=== PATIENT | female | born 1935 | race Hispanic/Latino ===

== ENCOUNTER 2016-10-20 20:31 | Emergency (ER) | payer MEDICARE, OTHER ==
[2016-10-20 20:31] VITALS: BMI 31.3
[2016-10-20 20:40] VITALS: BP 162/78; PULSE 71; RESP 18; TEMP 97.3; O2SAT 98
--- NOTE | 2016-10-20 21:53 | ED PDOC ---
HPI: Trauma/Fall - HPI Time Seen by Provider: 10/20/16 20:55 Chief Complaint (Nursing): Trauma Chief Complaint (Provider): Right Sided Rib Pain History Per: Patient History/Exam Limitations: no limitations Injury Occurred (Timing): Just Before Arrival Additional Complaint(s): Terra Albert, an 81 year old female, presents to the ED post fall complaining of right sided rib pain. The patient states that she was walking down the stairs when she missed a step. She states that she on the right side of her rib cage and hit the stairs. Patient also notes some pain with deep inspiration. She says she has not taken anything for pain. Denies any other medical complaint. - Fall Fall:Prior To Injury: Tripped Past Medical History Reviewed: Historical Data, Nursing Documentation, Vital Signs Vital Signs: Last Vital Signs Temp 97.3 F L 10/20/16 20:38 Pulse 71 10/20/16 20:38 Resp 18 10/20/16 20:38 BP 162/78 H 10/20/16 20:38 Pulse Ox 98 10/20/16 20:38 - Medical History PMH: HTN Denies: Chronic Kidney Disease - Surgical History Surgical History: Appendectomy, Cholecystectomy Other surgeries: Hysterectomy - Family History Family History: States: No Known Family Hx - Home Medications Home Medications: Ambulatory Orders Medication Instructions Recorded Aspirin [Lo-Dose Aspirin EC] 81 mg PO DAILY 10/20/16 Nitrofurantoin Macrocrystals 100 mg PO BID #14 cap 10/20/16 [Macrobid] Telmisartan [Micardis] 40 mg PO DAILY 10/20/16 - Allergies Allergies/Adverse Reactions: Allergies Allergy/AdvReac Type Severity Reaction Status Date / Time No Known Allergies Allergy Verified 04/17/14 09:50 Review of Systems ROS Statement: Except As Marked, All Systems Reviewed And Found Negative Musculoskeletal: Positive for: Other (Right sided rib pain) Physical Exam - Reviewed Nursing Documentation Reviewed: Yes Vital Signs Reviewed: Yes - Physical Exam Appears: Positive for: Non-toxic, No Acute Distress Head Exam: Positive for: ATRAUMATIC, NORMAL INSPECTION, NORMOCEPHALIC Skin: Positive for: Normal Color, Warm, Dry Eye Exam: Positive for: Normal appearance, EOMI, PERRL ENT: Positive for: Normal ENT Inspection Neck: Positive for: Normal, Painless ROM, Supple Cardiovascular/Chest: Positive for: Regular Rate, Rhythm, Chest Non Tender, Other (Right rib in back of chest there is redness and tenderness; no swelling; no deformity no crepitus; no ecchymosis.). Negative for: Tachycardia Respiratory: Positive for: Normal Breath Sounds, Other. Negative for: Wheezing , Respiratory Distress Gastrointestinal/Abdominal: Positive for: Normal Exam, Bowel Sounds, Soft. Negative for: Tenderness, Guarding, Rebound Neurologic/Psych: Positive for: Alert, Oriented, Gait - ECG O2 Sat by Pulse Oximetry: 98 (RA) Pulse Ox Interpretation: Normal Medical Decision Making Medical Decision Makin Initial Impression: 81 year old female presenting with rib/chest injury Differential: Rib Fracture, Contusion Initial Impression: * Udip * RAD Ribs and Chest Right * Toradol 30mg PO * Reevaluation * * CXR rib xray no acute findings * * Scribe Attestation Documented by Kym Joe acting as a scribe for Rowan Sharma MD. Provider Attestation: All medical record entries made by the Scribe were at my direction and personally dictated by me. I have reviewed the chart and agree that the record accurately reflects my personal performance of the history, physical exam, medical decision making, and the department course for this patient. I have also personally directed, reviewed, and agree with the discharge instructions and disposition. Disposition - Clinical Impression Clinical Impression: Trauma of chest, Rib contusion, UTI (urinary tract infection) - Patient ED Disposition Is Patient to be Admitted: No Doctor Will See Patient In The: Office Counseled Patient/Family Regarding: Studies Performed, Diagnosis, Need For Followup - Disposition Referrals: Jose Haji MD [Family Provider] - Disposition: Routine/Home Disposition Time: 22:53 Condition: GOOD Additional Instructions: Take advil for pain as needed. Apply ice for next 24 hours. Apply heat for pain after that. Follow up with your PCP in 2-3 days. Prescriptions: Nitrofurantoin Macrocrystals [Macrobid] 100 mg PO BID #14 cap Instructions: Urinary Tract Infection in Women (ED), Rib Contusion (ED)
--- NOTE | 2016-10-21 13:35 | RAD ---
PROCEDURE: Radiographs of the Chest and Right Ribs. HISTORY: rib injury right COMPARISON: None available. TECHNIQUE: Frontal radiograph of the chest and multiple oblique radiographs of the right ribs were obtained. FINDINGS: RIGHT RIBS: No fracture or focal lesion visualized. No suspicious lytic or blastic change. LUNGS: Clear. PLEURA: Trace fibrosis or pleural effusion blunts the lateral left costophrenic sulcus with the medial costophrenic sulcus appearing sharp nevertheless. Borderline left hemidiaphragm elevation is noted. No pneumothorax bilaterally. CARDIOVASCULAR: Normal sized heart. No pulmonary vascular congestion. OTHER FINDINGS: None. IMPRESSION: No definite acute right rib fracture identified at this time. Trace left pleural effusion or fibrosis at the left costophrenic sulcus. Limited elevation left hemidiaphragm of uncertain etiology.
== END 2016-10-20 23:03 | disposition home or self-care (01) ==
LOC: H.ER 20:31
DX: S20.219A Contusion of unspecified front wall of thorax, initial encounter (principal); W01.0XXA Fall on same level from slipping, tripping and stumbling without subsequent striking against object, initial encounter; Y92.89 Other specified places as the place of occurrence of the external cause; N39.0 Urinary tract infection, site not specified; I10 Essential (primary) hypertension; Z79.82 Long term (current) use of aspirin
CPT/HCPCS: 71101; 96372; 99284; J1885

== ENCOUNTER 2016-11-04 12:34 | Inpatient (IN) | payer MEDICARE, OTHER ==
[2016-11-04 12:35] VITALS: BMI 31.3
--- NOTE | 2016-11-04 13:46 | ED PDOC ---
Lower Extremity Pain/Injury Time Seen by Provider: 11/04/16 13:12 Chief Complaint (Nursing): Lower Extremity Problem/Injury Chief Complaint (Provider): Lower extremity problem History Per: Patient History/Exam Limitations: no limitations Onset/Duration Of Symptoms: Days (x2 weeks) Current Symptoms Are (Timing): Still Present Additional Complaint(s): Terra Albert is a 81 year old female, with a past medical history of hypertension and left side poor vascular return, who presents to the emergency department complaining of bilateral lower leg pain onset for 2 weeks. Patient reports bilateral leg swelling secondary to tingling, stiffness, warmth and redness on lower extremities. She denies any chest pain, shortness of breath, back pain, dysuria, hematuria, dizziness, cough, headache, recent travels or prolonged car rides. No recent surgeries and bleeding disorders, patient denies any history of DVT or PE. Patient reports she was sent today to the ER by her primary physician Dr. Haji. She reports she fell 2 weeks ago, she was seen in the ER due to low back pain where she received an X-ray of her ribs and chest , which came back normal. She was discharged with Macrobid for UTI. Patient notes 2 day after discharge she develops swelling on bilateral legs. She was seen at primary office this week for gout and was given Uloric. She notes 2 days after the swelling worsens and is associated with pain. PMD: Jose Haji - Risk Factors DVT Risk Factors: Neg: History Of DVT, History Of PE Past Medical History Reviewed: Historical Data, Nursing Documentation, Vital Signs Vital Signs: Last Vital Signs Temp 98 F 11/04/16 12:38 Pulse 64 11/04/16 12:38 Resp 16 11/04/16 12:38 BP 127/58 L 11/04/16 12:38 Pulse Ox 93 L 11/04/16 12:38 - Medical History PMH: HTN Denies: Chronic Kidney Disease - Surgical History Surgical History: Appendectomy, Cholecystectomy - Family History Family History: States: Unknown Family Hx - Social History Current smoker - smoking cessation education provided: No Alcohol: None Drugs: Denies - Home Medications Home Medications: Ambulatory Orders Medication Instructions Recorded Aspirin [Lo-Dose Aspirin EC] 81 mg PO DAILY 10/20/16 Ciprofloxacin [Cipro] 250 mg PO BID 11/04/16 Febuxostat [Uloric] 40 mg PO DAILY 11/04/16 Furosemide [Lasix] 20 mg PO DAILY 11/04/16 Telmisartan/Hydrochlorothiazid 1 tab PO DAILY 11/04/16 [Micardis Hct 40-12.5 mg Tablet] - Allergies Allergies/Adverse Reactions: Allergies Allergy/AdvReac Type Severity Reaction Status Date / Time No Known Allergies Allergy Verified 11/04/16 12:36 Review of Systems ROS Statement: Except As Marked, All Systems Reviewed And Found Negative Constitutional: Negative for: Fever Cardiovascular: Negative for: Chest Pain Respiratory: Negative for: Cough, Shortness of Breath Genitourinary Female: Negative for: Dysuria, Hematuria Musculoskeletal: Positive for: Leg Pain (b/l swelling associated with tingling, warm, red coloration, and stiffness). Negative for: Back Pain Neurological: Negative for: Headache, Dizziness Physical Exam - Reviewed Nursing Documentation Reviewed: Yes Vital Signs Reviewed: Yes - Physical Exam Appears: Positive for: Well, Non-toxic, No Acute Distress Head Exam: Positive for: ATRAUMATIC, NORMAL INSPECTION, NORMOCEPHALIC Skin: Positive for: Normal Color, Warm, DRY Eye Exam: Positive for: Normal appearance Cardiovascular/Chest: Positive for: Regular Rate, Rhythm Respiratory: Positive for: Normal Breath Sounds. Negative for: Respiratory Distress Pulses-Dorsalis Pedis (L): 2+ Pulses-Dorsalis Pedis (R): 2+ Pulses-Femoral (L): 2+ Pulses-Femoral (R): 2+ Gastrointestinal/Abdominal: Positive for: Normal Exam. Negative for: Tenderness (No suprapubic pain) Back: Positive for: Normal Inspection. Negative for: L CVA Tenderness, R CVA Tenderness Extremity: Positive for: Pedal Edema (Significant edema b/l with skin changes), Calf Tenderness (bilateral), Swelling Neurologic/Psych: Positive for: Alert, Oriented - Laboratory Results Result Diagrams: 11/04/16 13:44 11/04/16 13:44 - ECG O2 Sat by Pulse Oximetry: 93 (RA) Medical Decision Making Medical Decision Making: Initial Impression: DVT Initial Plan: --Comp Metabolic Panel --CBC w/ differential --PTT --PT --Hip min 3V w/ Pelvis Juan R [RAD] --Urinalysis --Duplex lower extrm vein bilat [US] Note: Dr. Haji Phone #: [phone] 16:[address] Findings: Visualized portions of the inferior thyroid gland demonstrates 2.4 cm right lower pole nodule with evidence of associated calcifications. The mediastinal and hilar vascular structures appear within normal limits. The heart appears within normal limits of size. Atherosclerotic calcifications of a tortuous aorta. Coronary artery calcifications. Pulmonary emboli noted within right lower lobe and left upper lobe pulmonary artery branches. No central pulmonary embolus identified. Centrilobular emphysema. Bibasilar atelectasis. No pleural effusion. No pneumothorax. No suspicious pulmonary nodules measuring greater than 5 mm. Small hiatal hernia/distal esophageal wall thickening. Limited visualized portions of the upper abdomen demonstrates 14 mm probable splenule. Kyphosis. Degenerative changes. Impression: Pulmonary emboli noted within right lower lobe and left upper lobe pulmonary artery branches. No central pulmonary embolus identified. 2.4 cm right lower pole thyroid nodule with evidence of associated calcifications. Centrilobular emphysema. Bibasilar atelectasis. 16:41 Extremity US FINDINGS: COMMON FEMORAL VEIN: Right CFV: Unremarkable. Left CFV: Unremarkable. SUPERFICIAL FEMORAL VEIN: Right SFV: Unremarkable. Left SFV: Unremarkable. POPLITEAL VEIN: Right Popliteal: Unremarkable. Left Popliteal: Unremarkable. POSTERIOR TIBIAL VEIN: Right PTV: Unremarkable. Left PTV: Unremarkable. OTHER FINDINGS: None. IMPRESSION: No evidence of deep venous thrombosis. 16:50 Note: No white blood cell elevation. Patient with evidence of UTI. ABG Shock panel, EKG, Troponin I, Echo comp w/ M mode/c flow/dop, K-Dur 20 mEq ER tab, Cipro 400mg IVPB ordered. Dr. Rico made aware hospitalist of case and has agreed for consult. 17:00 Patient was spoken to and made aware that she has bilateral embolism to lungs. Patient denies any bleeding and head injury. She has agreed to Lovenox, 90 units SC, and she will be admitted to hospitalist. 17:10 Discussed patient with hospitalist. Patient medication changed from Lovenox to Eliquis. Patient was informed in the change of medication and has agreed. Scribe Attestation: Documented by Claus Franco, acting as a scribe for Sabrina BOGGS. Provider Scribe Attestation: All medical record entries made by the Scribe were at my direction and personally dictated by me. I have reviewed the chart and agree that the record accurately reflects my personal performance of the history, physical exam, medical decision making, and the department course for this patient. I have also personally directed, reviewed, and agree with the discharge instructions and disposition. Disposition - Clinical Impression Clinical Impression: UTI (urinary tract infection), Pulmonary embolism - Patient ED Disposition Is Patient to be Admitted: Yes - Disposition Disposition Time: 17:35 Condition: STABLE Forms: [employer] (Namibian) - Pt Status Changed To: Hospital Disposition Of: Inpatient - Admit Certification Admit to Inpatient:: After my assessment, the patient will require hospitalization for at least two midnights. This is because of the severity of symptoms shown, intensity of services needed, and/or the medical risk in this patient being treated as an outpatient. - POA Present On Arrival: Deep Vein Thrombosis / PE
[2016-11-04 13:58] LABS: BASO # 0.1 K/uL (0.0-0.2); BASO % 0.9 % (0.0-2.0); EOS # 0.3 K/uL (0.0-0.7); EOS % 3.3 % (0.0-4.0); HEMOGLOBIN 13.2 g/dL (12.0-16.0); LYMPH # 1.2 K/uL (1.0-4.3); LYMPH % 15.4 % (20.0-40.0); MEAN CELL VOLUME 87.7 fl (81.0-99.0); MEAN CORPUSCULAR HEMOGLOBIN 29.2 pg (27.0-31.0); MEAN CORPUSCULAR HGB CONC 33.3 g/dL (33.0-37.0); MONO # 0.7 K/uL (0.0-0.8); MONO % 8.6 % (0.0-10.0); NEUT # 5.4 K/uL (1.8-7.0); NEUT % 71.8 % (50.0-75.0); RBC 4.51 Mil/uL (3.80-5.20); RED CELL DISTRIBUTION WIDTH 14.7 % (11.5-14.5); WHITE BLOOD COUNT 7.6 K/uL (4.8-10.8)
[2016-11-04 14:15] LABS: ALB/GLOB RATIO 1.2 (1.0-2.1); ALBUMIN 4.2 g/dL (3.5-5.0); ALT/SGPT 29 U/L (9-52); AST/SGOT 23 U/L (14-36); BLOOD UREA NITROGEN 16 mg/dl (7-17); CALCIUM 9.9 mg/dL (8.4-10.2); GFR AFRICAN-AMERICAN > 60; GFR NON-AFRICAN AMERICAN > 60
[2016-11-04 14:24] LABS: URIC ACID 6.7 mg/Dl (2.2-7.5)
[2016-11-04] MEDS ORDERED: Potassium Chloride 10 mEq ER Tab PO ONE ×2 (14:31→17:13)
[2016-11-04 14:47] LABS: INR 1.1 (0.9-1.2); PARTIAL THROMBOPLASTIN TIME 29.6 Seconds (25.6-37.1); PROTHROMBIN TIME 11.6 Seconds (9.8-13.1)
[2016-11-04] MEDS ORDERED: Iodixanol 320 MG/ML 100 ML BOTTLE IV ONE (15:32)
[2016-11-04] MEDS ORDERED: Sodium Chloride 0.9% 50 ML IV ONE (15:32)
[2016-11-04 15:48] LABS: URINE BILIRUBIN NEGATIVE (NEGATIVE); URINE BLOOD NEGATIVE (NEGATIVE); URINE CLARITY SLIGHTY-CLOUDY (Clear); URINE COLOR YELLOW (YELLOW); URINE GLUCOSE (UA) NEG (Normal); URINE LEUKOCYTE ESTERASE LARGE Leu/uL (Negative); URINE NITRATE POSITIVE (NEGATIVE); URINE PROTEIN NEGATIVE (NEGATIVE); URINE UROBILINOGEN 0.2-1.0 mg/dL (0.2-1.0)
[2016-11-04 16:26] LABS: SQUAMOUS EPITHIAL 3 /hpf (0-5); URINE BACTERIA MANY (<OCC)
[2016-11-04 16:27] LABS: URINE AMORPHOUS SEDIMENT FEW /ul (<OCC)
--- NOTE | 2016-11-04 16:42 | CT ---
CTA chest PE protocol Indication: elevated Ddimer, low O2%, hip injury 2wk ago Technique: Contiguous axial images were obtained through the chest with intravenous contrast enhancement. Sagittal and coronal reconstructions were generated and reviewed. This CT exam was performed using 1 or more of the falling dose reduction techniques: Automated exposure control, adjustment of the MAA and/or kV according to patient size, and/or use of iterative reconstruction technique. IV Contrast: 90 mL Visipaque 320 Radiation dose (DLP): 386.83 MGy-cm. Comparison: Chest x-ray performed 10/20/16 Findings: Visualized portions of the inferior thyroid gland demonstrates 2.4 cm right lower pole nodule with evidence of associated calcifications. The mediastinal and hilar vascular structures appear within normal limits. The heart appears within normal limits of size. Atherosclerotic calcifications of a tortuous aorta. Coronary artery calcifications. Pulmonary emboli noted within right lower lobe and left upper lobe pulmonary artery branches. No central pulmonary embolus identified. Centrilobular emphysema. Bibasilar atelectasis. No pleural effusion. No pneumothorax. No suspicious pulmonary nodules measuring greater than 5 mm. Small hiatal hernia/distal esophageal wall thickening. Limited visualized portions of the upper abdomen demonstrates 14 mm probable splenule. Kyphosis. Degenerative changes. Impression: Pulmonary emboli noted within right lower lobe and left upper lobe pulmonary artery branches. No central pulmonary embolus identified. 2.4 cm right lower pole thyroid nodule with evidence of associated calcifications. Centrilobular emphysema. Bibasilar atelectasis. Discussed With Sabrina Gutierrez on 11/04/16 at 4:34 p.m.
--- NOTE | 2016-11-04 16:43 | US ---
PROCEDURE: Bilateral lower extremity venous duplex Doppler. HISTORY: b/l swelling COMPARISON: None available. TECHNIQUE: Bilateral common femoral, superficial femoral, popliteal and posterior tibial veins were evaluated. Flow was assessed with color Doppler, compressibility, assessment of phasic flow and augmentation response. FINDINGS: COMMON FEMORAL VEIN: Right CFV: Unremarkable. Left CFV: Unremarkable. SUPERFICIAL FEMORAL VEIN: Right SFV: Unremarkable. Left SFV: Unremarkable. POPLITEAL VEIN: Right Popliteal: Unremarkable. Left Popliteal: Unremarkable. POSTERIOR TIBIAL VEIN: Right PTV: Unremarkable. Left PTV: Unremarkable. OTHER FINDINGS: None. IMPRESSION: No evidence of deep venous thrombosis.
[2016-11-04] MEDS ORDERED: Ciprofloxacin 400mg/200ml D5W 400 MG/200 ML BAG IV STA (16:45)
[2016-11-04] MEDS ORDERED: Enoxaparin 80 mg Syringe SC STA (16:55)
--- NOTE | 2016-11-04 17:12 | RAD ---
PROCEDURE: Pelvis bilateral hips HISTORY: fall injury x 2 weeks. COMPARISON: None TECHNIQUE: Standard protocol for this study/examination. FINDINGS: There are no osseous abnormalities to suggest fracture. The pelvic ring is intact. Preserved femoral-acetabular relationship. Negative study for protrusio, subluxation or dislocation. Degenerative changes: Mild and symmetrical. IMPRESSION: No acute findings related to/accounting for the clinical presentation. No preliminary report provided by emergency department personnel.
[2016-11-04] MEDS ORDERED: Ciprofloxacin 400mg/200ml D5W 400 MG/200 ML BAG IVPB ONE (17:13)
[2016-11-04 17:17] LABS: ABG ALLEN TEST YES; ARTERIAL BLOOD GAS HCO3 28.7 mmol/L (21-28); ARTERIAL BLOOD GAS O2 SAT 99.1 % (95-98); ARTERIAL BLOOD GAS PCO2 41 mm/Hg (35-45); ARTERIAL BLOOD GAS PH 7.46 (7.35-7.45); ARTERIAL BLOOD GAS PO2 75 mm/Hg (80-100); ARTERIAL BLOOD GAS TCO2 30.5 mmol/L (22-28)
--- NOTE | 2016-11-04 17:30 | CP.CCUPN ---
CCU Subjective - Physician Review Subjective (Free Text): PHYSICIAN CRITICAL CARE NOTE BUSINESS DEVELOPMENT ASSISTANT ICU ADMISSION NOTE Events reviewed, patient examined, discussed with ER MD: 81 F with PMH HTN and LOW back pain after falling at home 2 weeks ago, cleared for discharge to home after eval in ER, and laced on MacroBID for UTI as well at that time. Today, returned to ER with c/o bilateral leg pain, redness and swelling. Denies any CP or SOB, no cough, fevers, chills, N/V, palpitations, dizziness, diaphoresis. No recurrent falls, nor any focal weakness. Initial eval notable for bilateral RLL and GABRIEL PTE as seen on CTA Chest. SPO2 93% on RA , and placed on supplemental nasal cannula oxygen with SPO2 99%. Initial VS= T = 98F, BP 127/58, HR 64, RR 16. Awaiting on further labs in ER including ABG, Trops, Lactate, EKG and portable CXR. Allergies: NKDA ROS: as above, no further pertinent negs or positives on 10+ system review. Other PMSFH: thyroid goiter, non-smoker, no early family deaths from heart disease or CA. HEENT: no icterus, pupils equal / reactive, no gaze deviation, no nystagmus. NECK: no visible JVD CHEST: decreased BS bases, no wheezes, few bibasilar crackles. HEART: regular S1S2, no rubs heard. ABD: soft, and nontender, no distention, BS audible. EXT: +2 edema with min erythema and calf tenderness. No peripheral cyanosis. Distal pulses intact. NEURO: no focal weakness or focal motor deficits. AVAILABLE LABS: Lactate = peding ABG= pending WBC= 7.6 HGB= 13.2 PLTs= 204K Ddimer= 662 NA= 137 K= 3.2 HCO3= 26 BUN/Cr= 16/0.8 CXR pending. CTA Chest: results reviewed, bibasilar atelectasis, no gross consolidation. EKG: pending IMPRESSIONS: 1. Acuet / SubAcute PTE 2. Bilateral Lower Extremity Cellulitis, r/o Lower Extremity DVT 3. Hypokalemia 4. Bactiuria / UTI 5. HTN by history PLAN: 1. Awaiting on Trops and ECHO findings for further patient disposition and monitoring. 2. Supplemental O2. 3. Prelim report of venous Doppler US legs are negative for DVT. 4. Start AC. Non-massive / sub-massive PTE: no indication now for any thrombolytic therapy. 5. Check TFTs. Doubt any reaction from recent new medications; e.g. MacroBid, causing leg edema as claimed by patient. 6. Urine culture for non-resolving UTI, empiric Cipro started in ER. 7. K supplementation started in ER, check Mag and Phos levels.
--- NOTE | 2016-11-04 17:34 | CP.PCM.HP ---
History of Present Illness - History of Present Illness History of Present Illness: Chief complaint lower extremity edema HPI: This is an 81-year-old female with past medical history of hypertension, gout, thyroid goiter presenting to the emergency room for lower extremity edema and pain which she described as moderate and aching in pulling, which she believes is due to the antibiotic she was taking at home, Macrobid. Patient was seen in the emergency room for a fall about 2 weeks ago and was discharged home. Today in the emergency room patient was found to have bilateral pulmonary embolism within the right lower lobe and left upper lobe on CTA. Dimer was elevated 662, potassium 3.2, positive urinalysis positive nitrates and leukocyte esterase, lactate was 1, troponin is pending, hip x-ray was negative and duplex of lower extremity bilaterally showed no evidence of DVT. Patient vitals as follows temp 98 heart rate 79 BP 145/71 respiratory rate 16 O2 saturation 93% on room air, on nasal cannula 2 L she is satting at 98%. Patient was initiated on Eliquis, as well as Cipro in the emergency room. Stat echocardiogram is pending. EKG no evidence of isch or infarct. Patient to be admitted to ICU. Review of systems per HPI all other systems negative by me Past medical history hypertension, gout, thyroid goiter Past surgical history cholecystectomy appendectomy hysterectomy Family history CAD Social history denies tobacco, alcohol, IV drug use Medications patient takes Micardis and Lasix No known drug allergies Vital signs as documented. Reviewed Temp Pulse Resp BP Pulse Ox 98 F 79 20 145/71 93 L 11/04/16 12:38 11/04/16 16:50 11/04/16 16:50 11/04/16 16:50 11/04/16 17:36 Gen: WDWN, cooperative, alert HEENT: NCAT, PERRL, EOMI, no erythema, exudates, gross hearing intact, no lesions Neck: Soft, supple, no lymphadenopathy, no JVD Heart: +S1S2, RRR, No MRG Lung: CTAB, No WRR Abd: soft, NT, ND, BSx4, no HSM, no masses Ext: warm, well perfused, pedal pulses intact Neuro: AAOx3, Strength equal bilaterally UE/LE Skin: Warm, Dry, no rash Psych: Normal mood, affect with appropriate range Laboratory results 08/11/04/16 11/04/16 17:05 15:00 13:44 WBC RBC Hgb Hct MCV MCH MCHC RDW Plt Count MPV Neut % (Auto) Lymph % (Auto) [place] % (Auto) Eos % (Auto) Baso % (Auto) Neut # Lymph # [place] # Eos # Baso # PT 11.6 INR 1.1 APTT 29.6 D-Dimer, Quantitative 662 H pCO2 41 pO2 75 L HCO3 28.7 H ABG pH 7.46 H ABG Total CO2 30.5 H ABG O2 Saturation 99.1 H ABG Base Excess 4.9 H Davy Test Yes ABG Potassium 2.9 L Glucose 112 H Lactate 1.0 FiO2 28.0 Sodium 135.0 Potassium Chloride 100.0 Carbon Dioxide Anion Gap BUN Creatinine Est GFR ( Amer) Est GFR (Non-Af Amer) Random Glucose Uric Acid Calcium Total Bilirubin AST ALT Alkaline Phosphatase Total Protein Albumin Globulin Albumin/Globulin Ratio Arterial Blood Potassium 2.9 L Urine Color Yellow Urine Clarity Slighty-cloudy Urine pH 7.0 Ur Specific [place] 1.009 Urine Protein Negative Urine Glucose (UA) Neg Urine Ketones Negative Urine Blood Negative Urine Nitrate Positive H Urine Bilirubin Negative Urine Urobilinogen 0.2-1.0 Ur Leukocyte Esterase Large Urine RBC (Auto) 1 Urine Microscopic WBC 35 H Ur Squamous Epith Cells 3 Amorphous Sediment Few H Urine Bacteria Many H 11/04/16 11/04/16 13:44 13:44 WBC 7.6 RBC 4.51 Hgb 13.2 Hct 39.6 MCV 87.7 MCH 29.2 MCHC 33.3 RDW 14.7 H Plt Count 204 MPV 9.0 Neut % (Auto) 71.8 Lymph % (Auto) 15.4 L [place] % (Auto) 8.6 Eos % (Auto) 3.3 Baso % (Auto) 0.9 Neut # 5.4 Lymph # 1.2 [place] # 0.7 Eos # 0.3 Baso # 0.1 PT INR APTT D-Dimer, Quantitative pCO2 pO2 HCO3 ABG pH ABG Total CO2 ABG O2 Saturation ABG Base Excess Davy Test ABG Potassium Glucose Lactate FiO2 Sodium 137 Potassium 3.2 L Chloride 99 Carbon Dioxide 26 Anion Gap 15 BUN 16 Creatinine 0.8 Est GFR ( Amer) > 60 Est GFR (Non-Af Amer) > 60 Random Glucose 109 H Uric Acid 6.7 Calcium 9.9 Total Bilirubin 1.3 AST 23 ALT 29 Alkaline Phosphatase 76 Total Protein 7.6 Albumin 4.2 Globulin 3.4 Albumin/Globulin Ratio 1.2 Arterial Blood Potassium Urine Color Urine Clarity Urine pH Ur Specific [place] Urine Protein Urine Glucose (UA) Urine Ketones Urine Blood Urine Nitrate Urine Bilirubin Urine Urobilinogen Ur Leukocyte Esterase Urine RBC (Auto) Urine Microscopic WBC Ur Squamous Epith Cells Amorphous Sediment Urine Bacteria Imaging studies hip x-ray was negative and duplex of lower extremity bilaterally showed no evidence of DVT CTA positive for bilateral pulmonary embolism right lower lobe left upper lobe Ibuprofen [Motrin Tab] 400 mg PO Q6H PRN Ondansetron [Zofran Inj] 4 mg IVP Q6H PRN 11/04/16 21:00 Apixaban [Eliquis] 10 mg PO Q12 Anticoagulation Clinical Indication: Treatment for DVT/PE 11/05/16 09:00 Aspirin [Ecotrin] 81 mg PO DAILY Febuxostat [Uloric] 40 mg PO DAILY Furosemide [Lasix] 40 mg IVP DAILY Losartan [Cozaar] 50 mg PO DAILY cefTRIAXone [Rocephin] 1,000 mg Ped IV Syringe 1 syr IVPB DAILY Assessment and plan This is an 81-year-old female with past medical history of hypertension, gout, thyroid goiter presenting to the emergency room for lower extremity edema and pain which she described as moderate and aching in pulling, which she believes is due to the antibiotic she was taking at home, Macrobid. Patient was seen in the emergency room for a fall about 2 weeks ago and was discharged home. Today in the emergency room patient was found to have bilateral pulmonary embolism within the right lower lobe and left upper lobe on CTA. Dimer was elevated 662, potassium 3.2, positive urinalysis positive nitrates and leukocyte esterase, lactate was 1, troponin is pending, hip x-ray was negative and duplex of lower extremity bilaterally showed no evidence of DVT. Patient vitals as follows temp 98 heart rate 79 BP 145/71 respiratory rate 16 O2 saturation 93% on room air, on nasal cannula 2 L she is satting at 98%. Patient was initiated on Eliquis, as well as Cipro in the emergency room. Stat echocardiogram is pending. EKG no evidence of isch or infarct.Patient to be admitted to ICU. Discussed with ER and ICU physicians. Pulmonary embolism bilaterally, left upper lobe and right lower lobe Submassive vs. Low Risk pending ECHO/ RV strain Dimer 662, CTA + BL PE initiated ELIQUIS in ER. 6 more days of 10 mg q12, and switch to 5 mg po Q12 pt saturating 93% on RA, currently 2L NC maintain sat >95% Dopplers negative for DVT troponin pending EKG no evidence of isch or infarct UTI pt was on macrobid/cipro PO will give Ceftriaxone Urine C/S pending for Sensitivities HD stable at this time Lower extremity edema bilaterally Dopplers neg for DVT Edema for past couple of weeks, will give lasix 40 IVP DAILY and monitor renal fx Hypertension stable Micardis at home, cont losartan Hypokalemia K 3.2 repleted in ER recheck tomorrow Mg pending as well Gout stable cont uloric Thyroid Goiter stable, nodular goiter, s/p FNA 04/18/14 Thyroid US 09/12/15 - persistent complex mass R thyroid lobe with solid and cystic components as well as better delineated calcifications. thyroid panel pending VTE PPX on Eliquis Present on Admission - Present on Admission Any Indicators Present on Admission: No Past Patient History - Past Medical History & Family History Past Medical History?: Yes - Past Social History Alcohol: None Drugs: Denies - CARDIAC Hx Hypertension: Yes - PULMONARY Hx Respiratory Disorders: No - NEUROLOGICAL Hx Neurological Disorder: No - HEENT Hx HEENT Problems: No - RENAL Hx Chronic Kidney Disease: No - ENDOCRINE/METABOLIC Hx Endocrine Disorders: Yes Other/Comment: THYROID GOITER - HEMATOLOGICAL/ONCOLOGICAL Hx Blood Disorders: No - INTEGUMENTARY Hx Dermatological Problems: No - MUSCULOSKELETAL/RHEUMATOLOGICAL Hx Falls: No - GASTROINTESTINAL Hx Gastrointestinal Disorders: No - GENITOURINARY/GYNECOLOGICAL Hx Genitourinary Disorders: No - PSYCHIATRIC Hx Psychophysiologic Disorder: No Hx Substance Use: No - SURGICAL HISTORY Hx Appendectomy: Yes Hx Cholecystectomy: Yes - ANESTHESIA Hx Anesthesia: Yes Hx Anesthesia Reactions: No Hx Malignant Hyperthermia: No Meds Allergies/Adverse Reactions: Allergies Allergy/AdvReac Type Severity Reaction Status Date / Time No Known Allergies Allergy Verified 11/04/16 12:36 Results - Vital Signs Recent Vital Signs: Last Vital Signs Temp 98 F 11/04/16 12:38 Pulse 79 11/04/16 16:50 Resp 20 11/04/16 16:50 BP 145/71 11/04/16 16:50 Pulse Ox 93 L 11/04/16 17:23 - Labs Result Diagrams: 11/04/16 13:44 11/04/16 13:44 Labs: Laboratory Results - last 24 hr 11/04/16 17:05 pCO2 41 pO2 75 L HCO3 28.7 H ABG pH 7.46 H ABG Total CO2 30.5 H ABG O2 Saturation 99.1 H ABG Base Excess 4.9 H Davy Test Yes ABG Potassium 2.9 L Sodium 135.0 Chloride 100.0 Glucose 112 H Lactate 1.0 FiO2 28.0 Arterial Blood Potassium 2.9 L
[2016-11-04] MEDS ORDERED: Potassium Chloride 20 mEq/15 ml LIQ UD PO ONE (17:38)
[2016-11-04] MEDS ORDERED: Potassium Chloride 20 mEq ER Tab PO ONE (20:43)
[2016-11-05 05:43] LABS: BASO # 0.1 K/uL (0.0-0.2); BASO % 1.2 % (0.0-2.0); EOS # 0.4 K/uL (0.0-0.7); EOS % 6.8 % (0.0-4.0); HEMOGLOBIN 11.8 g/dL (12.0-16.0); LYMPH # 1.4 K/uL (1.0-4.3); LYMPH % 27.2 % (20.0-40.0); MEAN CELL VOLUME 87.5 fl (81.0-99.0); MEAN CORPUSCULAR HEMOGLOBIN 29.3 pg (27.0-31.0); MEAN CORPUSCULAR HGB CONC 33.5 g/dL (33.0-37.0); MEAN PLATELET VOLUME 8.8 fl (7.2-11.7); MONO # 0.5 K/uL (0.0-0.8); MONO % 9.3 % (0.0-10.0); NEUT # 2.9 K/uL (1.8-7.0); NEUT % 55.5 % (50.0-75.0); NRBC % 0.1 % (0.0-0.0); RBC 4.02 Mil/uL (3.80-5.20); RED CELL DISTRIBUTION WIDTH 14.2 % (11.5-14.5); WHITE BLOOD COUNT 5.2 K/uL (4.8-10.8)
[2016-11-05 05:57] LABS: BLOOD UREA NITROGEN 13 mg/dl (7-17); CALCIUM 9.6 mg/dL (8.4-10.2); GFR AFRICAN-AMERICAN > 60; GFR NON-AFRICAN AMERICAN > 60
--- NOTE | 2016-11-05 07:29 | CP.PCM.PN ---
Subjective - Date & Time of Evaluation Date of Evaluation: 11/05/16 Time of Evaluation: 07:30 - Subjective Subjective: Patient seen and examined bedside. feeling better. Denies any CP, SOB, tachycardia. No acute issues overnight. Hemodynamically stable. Edema to LE much improved Complains of pain to around left ankle Objective - Vital Signs/Intake and Output Vital Signs (last 24 hours): Temp Pulse Resp BP Pulse Ox 97.6 F 70 16 131/52 L 95 11/05/16 04:00 11/05/16 06:00 11/05/16 06:00 11/05/16 06:00 11/05/16 06:00 Intake and Output: 11/05/16 11/05/16 06:59 18:59 Intake Total 0 Output Total 400 Balance -400 - Medications Medications: Current Medications Apixaban (Eliquis) 10 mg PO Q12 LAYLA PRN Reason: Protocol Stop: 11/07/16 09:01 Last Admin: 11/04/16 21:36 Dose: Not Given Aspirin (Ecotrin) 81 mg PO DAILY LAYLA Furosemide (Lasix) 40 mg IVP DAILY LAYLA Ceftriaxone Sodium 1 gm/ (Sodium Chloride) 100 mls @ 100 mls/hr IVPB DAILY LAYLA Ibuprofen (Motrin Tab) 400 mg PO Q6H PRN PRN Reason: Fever >100.4 F Losartan Potassium (Cozaar) 50 mg PO DAILY LAYLA Ondansetron HCl (Zofran Inj) 4 mg IVP Q6H PRN PRN Reason: Nausea/Vomiting - Labs Labs: 11/05/16 05:00 11/05/16 05:00 PT 11.6 Seconds (9.8-13.1) 11/04/16 13:44 INR 1.1 (0.9-1.2) 11/04/16 13:44 APTT 29.6 Seconds (25.6-37.1) 11/04/16 13:44 - Constitutional Appears: Well, Non-toxic, No Acute Distress - Head Exam Head Exam: ATRAUMATIC, NORMAL INSPECTION, NORMOCEPHALIC - Eye Exam Eye Exam: EOMI, Normal appearance, PERRL Pupil Exam: NORMAL ACCOMODATION - ENT Exam ENT Exam: Mucous Membranes Moist, Normal Exam - Neck Exam Neck Exam: Full ROM, Normal Inspection - Respiratory Exam Respiratory Exam: Clear to Ausculation Bilateral, NORMAL BREATHING PATTERN. absent: Rales, Rhonchi, Wheezes - Cardiovascular Exam Cardiovascular Exam: REGULAR RHYTHM, RRR, +S1, +S2. absent: JVD - GI/Abdominal Exam GI & Abdominal Exam: Soft, Normal Bowel Sounds. absent: Distended, Guarding, Tenderness, Rebound - Rectal Exam Rectal Exam: Deferred - Extremities Exam Extremities Exam: Normal Inspection Additional comments: RLE more swolllen that LLe Left - Back Exam Back Exam: NORMAL INSPECTION - Neurological Exam Neurological Exam: Alert, Awake, CN II-XII Intact, Oriented x3 - Psychiatric Exam Psychiatric exam: Normal Affect, Normal Mood - Skin Skin Exam: Dry, Normal Color, Warm Assessment and Plan - Assessment and Plan (Free Text) Assessment: 81-year-old female with past medical history of hypertension, gout, thyroid goiter presented to the emergency room for lower extremity edema and pain which she described as moderate , aching and pulling, which she believes is due to the antibiotic she was taking at home, Macrobid. Patient was seen in the emergency room for a fall about 2 weeks ago and was discharged home. Today in the emergency room patient was found to have bilateral pulmonary embolism within the right lower lobe and left upper lobe on CTA. Dimer was elevated 662, potassium 3.2, positive urinalysis positive nitrates and leukocyte esterase, lactate was 1, troponin is pending, hip x-ray was negative and duplex of lower extremity bilaterally showed no evidence of DVT. Patient vitals as follows temp 98 heart rate 79 BP 145/71 respiratory rate 16 O2 saturation 93% on room air, on nasal cannula 2 L she is satting at 98%. Patient was initiated on Eliquis, as well as Cipro in the emergency room. EKG no evidence of isch or infarct.Patient was admitted to ICU for monitoring 1. Pulmonary embolism bilaterally, left upper lobe and right lower lobe Dimer 662, CTA + BL PE initiated ELIQUIS i Continue 6 more days of 10 mg q12, than switch to 5 mg po Q12 pt saturating well mitch 2 L O2 ia Nc with no respiratory distress Echo showed no right ventricular strain Dopplers negative for DVT EKG no evidence of isch or infarct will transfer out of ICu to med/surg 2.UTI urine culture is positive for gram negative jimena pt was on macrobid/cipro PO Continue rocephin IV Follow up identification and sensitivities 3.Lower extremity edema bilaterally-- improved Dopplers neg for DVT resolved with lasix and elevation Start PT 4.Hypertension stable Micardis at home, cont losartan 5.Hypokalemia resolved 6.Gout stable cont uloric 7.Thyroid Goiter stable, nodular goiter, s/p FNA 04/18/14 Thyroid US 09/12/15 - persistent complex mass R thyroid lobe with solid and cystic components as well as better delineated calcifications. thyroid panel pending 8.VTE PPX on Eliquis
--- NOTE | 2016-11-05 07:31 | CP.CCUPN ---
CCU Subjective - Physician Review Subjective (Free Text): 11/05/16 7:20 AM Patient seen and examined bedside AAOx3 breathing using NC 2L O2 sat 95%. No overnight events. Reports left leg is less swollen today. Denies chest pain, SOB , leg pain, fever, dysuria, N/V/Abd pain. Tolerating regular diet. afebrile. CCU Objective - Vital Signs / Intake & Output Vital Signs (Last 4 hours): Vital Signs Temp Pulse Resp BP Pulse Ox 11/05/16 06:00 70 16 131/52 L 95 11/05/16 04:00 97.6 F 61 19 134/57 L 91 L Intake and Output (Last 8hrs): Intake & Output 11/04/16 11/05/16 11/05/16 22:59 06:59 14:59 Intake Total 0 Output Total 400 Balance -400 Intake: IV 0 Output: Urine 400 Urine, Voided 400 Other: # Voids Urine, Voided 1 - Physical Exam Head: Positive for: Atraumatic, Normocephalic Pupils: Positive for: PERRL Extroacular Muscles: Positive for: EOMI Conjunctiva: Positive for: Normal Mouth: Positive for: Moist Mucous Membranes Respiratory/Chest: Positive for: Decreased Breath Sounds (B/L lung bases), Rales (scattered rales right lung base) Cardiovascular: Positive for: Regular Rate and Rhythm, Other (split S1 tricuspid ,mitral area). Negative for: Murmurs Abdomen: Positive for: Normal Bowel Sounds. Negative for: Tenderness, Distention Upper Extremity: Positive for: Normal Inspection Lower Extremity: Positive for: Edema (B/L Pedal edema 2+, > R than L), NORMAL PULSES. Negative for: CALF TENDERNESS, Cyanosis, Naida's Sign Neurological: Positive for: Speech Normal, Motor Func Grossly Intact Skin: Positive for: Dry, Normal Color - Medications Active Medications: Active Medications Generic Name Dose Route Start Last Admin Trade Name Freq PRN Reason Stop Dose Admin Apixaban 10 mg 11/04/16 21:00 11/04/16 21:36 Eliquis PO 11/07/16 09:01 Not Given Q12 [facility] Protocol Aspirin 81 mg 11/05/16 09:00 Ecotrin PO DAILY LAYLA Furosemide 40 mg 11/05/16 09:00 Lasix IVP DAILY [facility] Ceftriaxone Sodium 1 gm/ 100 mls @ 100 mls/hr 11/05/16 09:00 Sodium Chloride IVPB DAILY LAYLA Ibuprofen 400 mg 11/04/16 17:39 Motrin Tab PO Q6H PRN Fever >100.4 F Losartan Potassium 50 mg 11/05/16 09:00 Cozaar PO DAILY [facility] Ondansetron HCl 4 mg 11/04/16 17:39 Zofran Inj IVP Q6H PRN Nausea/Vomiting - Patient Studies Lab Studies: Lab Studies 11/05/16 11/05/16 11/05/16 Range/Units 05:00 05:00 05:00 WBC 5.2 (4.8-10.8) K/uL RBC 4.02 (3.80-5.20) Mil/uL Hgb 11.8 L (12.0-16.0) g/dL Hct 35.2 (34.0-47.0) % MCV 87.5 (81.0-99.0) fl MCH 29.3 (27.0-31.0) pg MCHC 33.5 (33.0-37.0) g/dL RDW 14.2 (11.5-14.5) % Plt Count 188 (130-400) K/uL MPV 8.8 (7.2-11.7) fl Neut % (Auto) 55.5 (50.0-75.0) % Lymph % (Auto) 27.2 (20.0-40.0) % [place] % (Auto) 9.3 (0.0-10.0) % Eos % (Auto) 6.8 H (0.0-4.0) % Baso % (Auto) 1.2 (0.0-2.0) % Neut # 2.9 (1.8-7.0) K/uL Lymph # 1.4 (1.0-4.3) K/uL [place] # 0.5 (0.0-0.8) K/uL Eos # 0.4 (0.0-0.7) K/uL Baso # 0.1 (0.0-0.2) K/uL pCO2 (35-45) mm/Hg pO2 (80-100) mm/Hg HCO3 (21-28) mmol/L ABG pH (7.35-7.45) ABG Total CO2 (22-28) mmol/L ABG O2 Saturation (95-98) % ABG Base Excess (-2.0-3.0) mmol/L Davy Test ABG Potassium (3.6-5.2) mmol/L Sodium 139 (132-148) mmol/L Chloride 105 (98-107) mmol/L Glucose (65-105) mg/dL Lactate (0.7-2.1) mmol/L FiO2 % Potassium 3.6 (3.6-5.0) MMOL/L Carbon Dioxide 26 (22-30) mmol/L Anion Gap 12 (10-20) BUN 13 (7-17) mg/dl Creatinine 0.7 (0.7-1.2) mg/dL Est GFR ( Amer) > 60 Est GFR (Non-Af Amer) > 60 Random Glucose 100 (65-105) mg/dL Calcium 9.6 (8.4-10.2) mg/dL Magnesium 2.0 (1.6-2.3) MG/DL Troponin I < 0.0120 (0.00-0.120) ng/mL Free T4 1.82 (0.78-2.19) ng/dL TSH 3rd Generation 1.20 (0.46-4.68) mIU/ML Arterial Blood Potassium (3.6-5.2) mmol/L 11/04/16 11/04/16 Range/Units 20:55 17:05 WBC (4.8-10.8) K/uL RBC (3.80-5.20) Mil/uL Hgb (12.0-16.0) g/dL Hct (34.0-47.0) % MCV (81.0-99.0) fl MCH (27.0-31.0) pg MCHC (33.0-37.0) g/dL RDW (11.5-14.5) % Plt Count (130-400) K/uL MPV (7.2-11.7) fl Neut % (Auto) (50.0-75.0) % Lymph % (Auto) (20.0-40.0) % [place] % (Auto) (0.0-10.0) % Eos % (Auto) (0.0-4.0) % Baso % (Auto) (0.0-2.0) % Neut # (1.8-7.0) K/uL Lymph # (1.0-4.3) K/uL [place] # (0.0-0.8) K/uL Eos # (0.0-0.7) K/uL Baso # (0.0-0.2) K/uL pCO2 41 (35-45) mm/Hg pO2 75 L (80-100) mm/Hg HCO3 28.7 H (21-28) mmol/L ABG pH 7.46 H (7.35-7.45) ABG Total CO2 30.5 H (22-28) mmol/L ABG O2 Saturation 99.1 H (95-98) % ABG Base Excess 4.9 H (-2.0-3.0) mmol/L Davy Test Yes ABG Potassium 2.9 L (3.6-5.2) mmol/L Sodium 135.0 (132-148) mmol/L Chloride 100.0 (98-107) mmol/L Glucose 112 H (65-105) mg/dL Lactate 1.0 (0.7-2.1) mmol/L FiO2 28.0 % Potassium (3.6-5.0) MMOL/L Carbon Dioxide (22-30) mmol/L Anion Gap (10-20) BUN (7-17) mg/dl Creatinine (0.7-1.2) mg/dL Est GFR ( Amer) Est GFR (Non-Af Amer) Random Glucose (65-105) mg/dL Calcium (8.4-10.2) mg/dL Magnesium (1.6-2.3) MG/DL Troponin I < 0.0120 (0.00-0.120) ng/mL Free T4 (0.78-2.19) ng/dL TSH 3rd Generation (0.46-4.68) mIU/ML Arterial Blood Potassium 2.9 L (3.6-5.2) mmol/L Laboratory Results - last 24 hr 11/04/16 11/04/16 11/05/16 17:05 20:55 05:00 WBC 5.2 RBC 4.02 Hgb 11.8 L Hct 35.2 MCV 87.5 MCH 29.3 MCHC 33.5 RDW 14.2 Plt Count 188 MPV 8.8 Neut % (Auto) 55.5 Lymph % (Auto) 27.2 [place] % (Auto) 9.3 Eos % (Auto) 6.8 H Baso % (Auto) 1.2 Neut # 2.9 Lymph # 1.4 [place] # 0.5 Eos # 0.4 Baso # 0.1 pCO2 41 pO2 75 L HCO3 28.7 H ABG pH 7.46 H ABG Total CO2 30.5 H ABG O2 Saturation 99.1 H ABG Base Excess 4.9 H Davy Test Yes ABG Potassium 2.9 L Sodium 135.0 Chloride 100.0 Glucose 112 H Lactate 1.0 FiO2 28.0 Potassium Carbon Dioxide Anion Gap BUN Creatinine Est GFR ( Amer) Est GFR (Non-Af Amer) Random Glucose Calcium Magnesium Troponin I < 0.0120 Free T4 TSH 3rd Generation Arterial Blood Potassium 2.9 L 11/05/16 11/05/16 05:00 05:00 WBC RBC Hgb Hct MCV MCH MCHC RDW Plt Count MPV Neut % (Auto) Lymph % (Auto) [place] % (Auto) Eos % (Auto) Baso % (Auto) Neut # Lymph # [place] # Eos # Baso # pCO2 pO2 HCO3 ABG pH ABG Total CO2 ABG O2 Saturation ABG Base Excess Davy Test ABG Potassium Sodium 139 Chloride 105 Glucose Lactate FiO2 Potassium 3.6 Carbon Dioxide 26 Anion Gap 12 BUN 13 Creatinine 0.7 Est GFR ( Amer) > 60 Est GFR (Non-Af Amer) > 60 Random Glucose 100 Calcium 9.6 Magnesium 2.0 Troponin I < 0.0120 Free T4 1.82 TSH 3rd Generation 1.20 Arterial Blood Potassium Review of Systems - EENT Ears: UNREMARKABLE - Breasts Breasts: UNREMARKABLE - Cardiovascular Cardiovascular: UNREMARKABLE - Respiratory Respiratory: UNREMARKABLE - Gastrointestinal Gastrointestinal: UNREMARKABLE - Genitourinary Genitourinary: UNREMARKABLE - Neurological Neurological: UNREMARKABLE - Psychiatric Psychiatric: UNREMARKABLE Critical Care Progress Note - Nutrition Nutrition: Nutrition Category Date Time Status Heart Healthy Diet [DIET] Diets 11/05/16 Breakfast Active Assessment/Plan - Assessment and Plan (Free Text) Plan: 81 yo ,f, PMhx/o HTN, Thyroid goiter, Gout presented to ED 12 days ago s/p fall after missing a step, hitting her back. Patient was evaluated in ED, no fracture , Asymptomatic UTI found and patient was DC with antibiotic. Two days later patient noticed progressive B/L leg sweeling, more left than right associated with burning sensation left side and erythema and after patient contacting PMD, she was instructed to go to ED. she denies hx/o DVT, PE, recent travel, recent surgery, sedentarism or bedbound.Patient was evaluated yesterday and Ct chest showed PE RLL and GABRIEL, resulting in admission in ICU Assessment/Plan 1) PE -Hemodynamically stable -Echo Lv nl size, nl EF. -Dimer 662 -CTA + BL PE -EKG no evidence of isch or infarct -Elliquis 10 mg q12, and switch to 5 mg po Q12 2) UTI -asymptomatic -c/w antibiotic -Ceftriaxone 3) B/L leg sweeling Lower extremity edema bilaterally Doppler Us neg for DVT Lasix 40 IVP 4) Thyroid Goiter -stable, nodular goiter, s/p FNA 04/18/14 Thyroid US 09/12/15 - persistent complex mass R thyroid lobe with solid and cystic components as well as better delineated calcifications. TSH: 1.20 FT4 1.82 NL 5) HTN -controlled -c/w losartan 6) DVT Prophylaxis -Elliquis
--- NOTE | 2016-11-05 10:41 | CARD ---
APPROVED REPORT EKG Measurement Heart [id number] <Conclusion> Normal sinus rhythm with sinus arrhythmia Minimal voltage criteria for LVH, may be normal variant Nonspecific ST abnormality Abnormal ECG
--- NOTE | 2016-11-05 11:24 | CARD ---
APPROVED REPORT EXAM: Two-dimensional and M-mode echocardiogram with Doppler and color Doppler. Other Information Quality : GoodRhythm : NSR INDICATION Pulmonary Embolism 2D DIMENSIONS IVSd0.85 (0.7-1.1cm)LVDd4.06 (3.9-5.9cm) LVOT Diameter1.96 (1.8-2.4cm)PWd1.12 (0.7-1.1cm) IVSs1.29 (0.8-1.2cm)LVDs2.55 (2.5-4.0cm) FS (%) 37.2 %PWs1.32 (0.8-1.2cm) M-Mode DIMENSIONS Left Atrium (MM)4.35 (2.5-4.0cm)IVSd1.00 (0.7-1.1cm) Aortic Root3.18 (2.2-3.7cm)LVDd4.50 (4.0-5.6cm) Aortic Cusp Exc.2.00 (1.5-2.0cm)PWd1.09 (0.7-1.1cm) IVSs1.44 cmFS (%) 50 % LVDs2.26 (2.0-3.8cm)PWs1.53 cm Mitral Valve MV E Rtyfbrkz08.8cm/sMV DECEL [id number] A Egoaaoaz07.8cm/s MV [id number]/A ratio0.9MVA (PHT)2.62cm2 TDI Lateral E' Peak V7.33cm/sMedial E' Peak V5.79cm/sE/Lateral E'8.7 E/Medial E'11.0 Pulmonary Valve PV Peak Zetilbau323.6cm/s LEFT VENTRICLE The left ventricle is normal size. There is normal left ventricular wall thickness. The left ventricular function is normal. The left ventricular ejection fraction is within the normal range. The Ejection Fraction is 65-70%. There is normal LV segmental wall motion. Transmitral Doppler flow pattern is Grade I-abnormal relaxation pattern. No left ventricle thrombus noted on this study. There is no mass noted in the left ventricle. RIGHT VENTRICLE The right ventricle is normal size. There is normal right ventricular wall thickness. The right ventricular systolic function is normal. ATRIA The left atrium size is normal. The right atrium size is normal. The interatrial septum is intact with no evidence for an atrial septal defect. AORTIC VALVE The aortic valve is normal in structure and function. No aortic regurgitation is present. There is no aortic valvular stenosis. There is no aortic valvular vegetation. MITRAL VALVE The mitral valve is normal in structure and function. There is no evidence of mitral valve prolapse. There is no mitral valve stenosis. There is no mitral valve regurgitation noted. TRICUSPID VALVE The tricuspid valve is normal in structure and function. There is no tricuspid valve regurgitation noted. There is no tricuspid valve prolapse or vegetation. There is no tricuspid valve stenosis. PULMONIC VALVE The pulmonary valve is normal in structure and function. There is no pulmonic valvular regurgitation. There is no pulmonic valvular stenosis. GREAT VESSELS The aortic root is normal in size. The IVC is normal in size and collapses >50% with inspiration. PERICARDIAL EFFUSION The pericardium appears normal. There is no pleural effusion. <Conclusion> The left ventricle is normal size. The left ventricular function is normal. The left ventricular ejection fraction is within the normal range. The Ejection Fraction is 65-70%.
[2016-11-06 00:22] VITALS: RESP 20
[2016-11-06 08:32] VITALS: BP 121/73; PULSE 61; TEMP 98; O2SAT 97
[2016-11-06 09:55] LABS: HEMOGLOBIN 12.6 g/dL (12.0-16.0); MEAN CELL VOLUME 88.6 fl (81.0-99.0); MEAN CORPUSCULAR HEMOGLOBIN 29.4 pg (27.0-31.0); MEAN CORPUSCULAR HGB CONC 33.2 g/dL (33.0-37.0); RBC 4.27 Mil/uL (3.80-5.20); RED CELL DISTRIBUTION WIDTH 14.6 % (11.5-14.5)
[2016-11-06 10:25] LABS: ALB/GLOB RATIO 1.2 (1.0-2.1); ALBUMIN 3.9 g/dL (3.5-5.0); ALT/SGPT 33 U/L (9-52); AST/SGOT 25 U/L (14-36); BLOOD UREA NITROGEN 15 mg/dl (7-17); CALCIUM 9.5 mg/dL (8.4-10.2); GFR AFRICAN-AMERICAN > 60; GFR NON-AFRICAN AMERICAN > 60
--- NOTE | 2016-11-06 12:59 | CP.PCM.DIS ---
Provider - Provider Date of Admission: 11/04/16 16:49 Attending physician: Olga Saha DO Time Spent in preparation of Discharge (in minutes): 30 Diagnosis - Discharge Diagnosis (1) Pulmonary embolism Status: Acute (2) UTI (urinary tract infection) Status: Acute Hospital Course - Lab Results Lab Results: Micro Results 11/04/16 17:21 Urine,Clean Catch Urine Culture - Final Escherichia Coli Most Recent Lab Values WBC 6.0 K/uL (4.8-10.8) 11/06/16 08:20 RBC 4.27 Mil/uL (3.80-5.20) 11/06/16 08:20 Hgb 12.6 g/dL (12.0-16.0) 11/06/16 08:20 Hct 37.9 % (34.0-47.0) 11/06/16 08:20 MCV 88.6 fl (81.0-99.0) 11/06/16 08:20 MCH 29.4 pg (27.0-31.0) 11/06/16 08:20 MCHC 33.2 g/dL (33.0-37.0) 11/06/16 08:20 RDW 14.6 % (11.5-14.5) H 11/06/16 08:20 Plt Count 209 K/uL (130-400) 11/06/16 08:20 MPV 8.8 fl (7.2-11.7) 11/05/16 05:00 Neut % (Auto) 55.5 % (50.0-75.0) 11/05/16 05:00 Lymph % (Auto) 27.2 % (20.0-40.0) 11/05/16 05:00 Gosper % (Auto) 9.3 % (0.0-10.0) 11/05/16 05:00 Eos % (Auto) 6.8 % (0.0-4.0) H 11/05/16 05:00 Baso % (Auto) 1.2 % (0.0-2.0) 11/05/16 05:00 Neut # 2.9 K/uL (1.8-7.0) 11/05/16 05:00 Lymph # 1.4 K/uL (1.0-4.3) 11/05/16 05:00 Gosper # 0.5 K/uL (0.0-0.8) 11/05/16 05:00 Eos # 0.4 K/uL (0.0-0.7) 11/05/16 05:00 Baso # 0.1 K/uL (0.0-0.2) 11/05/16 05:00 PT 11.6 Seconds (9.8-13.1) 11/04/16 13:44 INR 1.1 (0.9-1.2) 11/04/16 13:44 APTT 29.6 Seconds (25.6-37.1) 11/04/16 13:44 D-Dimer, Quantitative 662 ng/mlDDU (0-230) H 11/04/16 13:44 pCO2 41 mm/Hg (35-45) 11/04/16 17:05 pO2 75 mm/Hg (80-100) L 11/04/16 17:05 HCO3 28.7 mmol/L (21-28) H 11/04/16 17:05 ABG pH 7.46 (7.35-7.45) H 11/04/16 17:05 ABG Total CO2 30.5 mmol/L (22-28) H 11/04/16 17:05 ABG O2 Saturation 99.1 % (95-98) H 11/04/16 17:05 ABG Base Excess 4.9 mmol/L (-2.0-3.0) H 11/04/16 17:05 Davy Test Yes 11/04/16 17:05 ABG Potassium 2.9 mmol/L (3.6-5.2) L 11/04/16 17:05 Sodium 135.0 mmol/L (132-148) 11/04/16 17:05 Chloride 100.0 mmol/L (98-107) 11/04/16 17:05 Glucose 112 mg/dL (65-105) H 11/04/16 17:05 Lactate 1.0 mmol/L (0.7-2.1) 11/04/16 17:05 FiO2 28.0 % 11/04/16 17:05 Sodium 138 mmol/l (132-148) 11/06/16 08:20 Potassium 3.6 MMOL/L (3.6-5.0) 11/06/16 08:20 Chloride 102 mmol/L (98-107) 11/06/16 08:20 Carbon Dioxide 25 mmol/L (22-30) 11/06/16 08:20 Anion Gap 14 (10-20) 11/06/16 08:20 BUN 15 mg/dl (7-17) 11/06/16 08:20 Creatinine 0.8 mg/dL (0.7-1.2) 11/06/16 08:20 Est GFR ( Amer) > 60 11/06/16 08:20 Est GFR (Non-Af Amer) > 60 11/06/16 08:20 Random Glucose 96 mg/dL (65-105) 11/06/16 08:20 Uric Acid 6.7 mg/Dl (2.2-7.5) 11/04/16 13:44 Calcium 9.5 mg/dL (8.4-10.2) 11/06/16 08:20 Magnesium 2.0 MG/DL (1.6-2.3) 11/05/16 05:00 Total Bilirubin 1.0 mg/dl (0.2-1.3) 11/06/16 08:20 AST 25 U/L (14-36) 11/06/16 08:20 ALT 33 U/L (9-52) 11/06/16 08:20 Alkaline Phosphatase 62 U/L (38-126) 11/06/16 08:20 Troponin I < 0.0120 ng/mL (0.00-0.120) 11/05/16 10:50 Total Protein 7.0 G/DL (6.3-8.2) 11/06/16 08:20 Albumin 3.9 g/dL (3.5-5.0) 11/06/16 08:20 Globulin 3.2 gm/dL (2.2-3.9) 11/06/16 08:20 Albumin/Globulin Ratio 1.2 (1.0-2.1) 11/06/16 08:20 Free T4 1.82 ng/dL (0.78-2.19) 11/05/16 05:00 Free T3 pg/mL 3.72 pg/mL (2.77-5.27) 11/05/16 05:00 TSH 3rd Generation 1.20 mIU/ML (0.46-4.68) 11/05/16 05:00 Arterial Blood Potassium 2.9 mmol/L (3.6-5.2) L 11/04/16 17:05 Urine Color Yellow (YELLOW) 11/04/16 15:00 Urine Clarity Slighty-cloudy (Clear) 11/04/16 15:00 Urine pH 7.0 (5.0-8.0) 11/04/16 15:00 Ur Specific [place] 1.009 (1.003-1.030) 11/04/16 15:00 Urine Protein Negative mg/dL (NEGATIVE) 11/04/16 15:00 Urine Glucose (UA) Neg mg/dL (Normal) 11/04/16 15:00 Urine Ketones Negative mg/dL (NEGATIVE) 11/04/16 15:00 Urine Blood Negative (NEGATIVE) 11/04/16 15:00 Urine Nitrate Positive (NEGATIVE) H 11/04/16 15:00 Urine Bilirubin Negative (NEGATIVE) 11/04/16 15:00 Urine Urobilinogen 0.2-1.0 mg/dL (0.2-1.0) 11/04/16 15:00 Ur Leukocyte Esterase Large So/uL (Negative) 11/04/16 15:00 Urine RBC (Auto) 1 /hpf (0-3) 11/04/16 15:00 Urine Microscopic WBC 35 /hpf (0-5) H 11/04/16 15:00 Ur Squamous Epith Cells 3 /hpf (0-5) 11/04/16 15:00 Amorphous Sediment Few /ul (<OCC) H 11/04/16 15:00 Urine Bacteria Many (<OCC) H 11/04/16 15:00 - Hospital Course Hospital Course: 81-year-old female with past medical history of hypertension, gout, thyroid goiter presented to the emergency room for lower extremity edema and pain which she described as moderate , aching and pulling, which she believes is due to the antibiotic she was taking at home, Macrobid. Patient was seen in the emergency room for a fall about 2 weeks ago and was discharged home. Today in the emergency room patient was found to have bilateral pulmonary embolism within the right lower lobe and left upper lobe on CTA. Dimer was elevated 662, potassium 3.2, positive urinalysis positive nitrates and leukocyte esterase, lactate was 1, troponin is pending, hip x-ray was negative and duplex of lower extremity bilaterally showed no evidence of DVT. Patient vitals as follows temp 98 heart rate 79 BP 145/71 respiratory rate 16 O2 saturation 93% on room air, on nasal cannula 2 L she is satting at 98%. Patient was initiated on Eliquis, as well as Cipro in the emergency room. EKG no evidence of isch or infarct.Patient was admitted to ICU for monitoring 1. Pulmonary embolism bilaterally, left upper lobe and right lower lobe Dimer 662, CTA + BL PE initiated ELIQUIS i Continue 6 more days of 10 mg q12, than switch to 5 mg po Q12 pt saturating well mitch 2 L O2 ia Nc with no respiratory distress Echo showed no right ventricular strain Dopplers negative for DVT EKG no evidence of isch or infarct will transfer out of ICu to med/surg 2.UTI urine culture is positive for gram negative jimena pt was on macrobid/cipro PO Continue rocephin IV Follow up identification and sensitivities 3.Lower extremity edema bilaterally-- improved Dopplers neg for DVT resolved with lasix and elevation Start PT 4.Hypertension stable Micardis at home, cont losartan 5.Hypokalemia resolved 6.Gout stable cont uloric 7.Thyroid Goiter stable, nodular goiter, s/p FNA 04/18/14 Thyroid US 09/12/15 - persistent complex mass R thyroid lobe with solid and cystic components as well as better delineated calcifications. thyroid panel pending 8.VTE PPX on Eliquis Discharge Exam - Head Exam Head Exam: ATRAUMATIC, NORMAL INSPECTION, NORMOCEPHALIC - Eye Exam Eye Exam: EOMI, Normal appearance, PERRL Pupil Exam: NORMAL ACCOMODATION - ENT Exam ENT Exam: Mucous Membranes Moist, Normal Oropharynx - Neck Exam Neck exam: Full Rom, Normal Inspection - Respiratory Exam Respiratory Exam: Clear to PA & Lateral, NORMAL BREATHING PATTERN. absent: Rales - Cardiovascular Exam Cardiovascular Exam: RRR, +S1, +S2. absent: Gallop, Rubs - GI/Abdominal Exam GI & Abdominal Exam: Normal Bowel Sounds, Soft. absent: Organomegaly, Tenderness - Extremities Exam Extremities exam: normal capillary refill, pedal pulses present - Back Exam Back exam: absent: CVA tenderness (L), CVA tenderness (R) - Neurological Exam Neurological exam: Alert, Oriented x3 - Psychiatric Exam Psychiatric exam: Normal Affect, Normal Mood - Skin Skin Exam: Dry, Normal Color Discharge Plan - Discharge Medications Prescriptions: Apixaban [Eliquis] 5 mg PO Q12 #60 tab Apixaban [Eliquis] 10 mg PO Q12 #3 tab Telmisartan/Hydrochlorothiazid [Micardis Hct 40-12.5 mg Tablet] 1 tab PO DAILY # 30 tab - Follow Up Plan Condition: STABLE Disposition: HOME/ ROUTINE
--- NOTE | 2016-11-06 13:16 | CP.PCM.CON ---
History of Present Illness - History of Present Illness History of Present Illness: pt seen and examined on 11-05-16 at 2100. PT STATES THAT SHE RECENTLY FELL AND THE DAY AFTER SHE NOTICED HER LEGS WERE BOTH SWOLLEN. SHORTLY THEREAFTER SHE NOTICED JIMÉNEZ. DENIES ORTHOPNEA, DIZZINESS , LH, CP, SYNCOPE, PRESYNCOPE, PALP, N/V/D/C, F/C. DENIES MCCRARY, OR HEAD TRAUMA. UPON ADMISSION PT WAS NOTED TO HAVE B/L PE ON CT SCAN. SHE DENIES ANY SIG PAST MED HX. NO HX OF CAD OR CHF. Review of Systems - Constitutional Constitutional: As Per HPI. absent: Anorexia, Chills, Daytime Sleepiness, Excessive Sweating, Fatigue, Fever, Frequent Falls, Headache, Increased Appetite , Lethargy, Malaise, Night Sweats, Snoring, Sleep Apnea, Weight Gain, Weight Loss, Weakness, Other - EENT Eyes: As Per HPI. absent: Blind Spots, Blurred Vision, Change in Vision, Decreased Night Vision, Diplopia, Discharge, Dry Eye, Exophthalmos, Floaters, Irritation, Itchy Eyes, Loss of Peripheral Vision, Pain, Photophobia, Requires Corrective Lenses, Sees Flashes, Spots in Vision, Tunnel Vision, Other Visual Disturbances, Loss of Vision, Other Ears: absent: As Per HPI, Decreased Hearing, Ear Discharge, Ear Pain, Tinnitus, Abnormal Hearing, Disequilibrium, Dizziness, Other Nose/Mouth/Throat: absent: As Per HPI, Epistaxis, Nasal Congestion, Nasal Discharge, Nasal Obstruction, Nasal Trauma, Nose Pain, Post Nasal Drip, Sinus Pain, Sinus Pressure, Bleeding Gums, Change in Voice, Dental Pain, Dry Mouth, Dysphagia, Halitosis, Hoarsness, Lip Swelling, Mouth Lesions, Mouth Pain, Odynophagia, Sore Throat, Throat Swelling, Tongue Swelling, Facial Pain, Neck Pain, Neck Mass, Other - Breasts Breasts: absent: As Per HPI, Change in Shape, Mass, Pain, Nipple Discharge, Nipple Inversion, Skin Changes, Swelling, Other - Cardiovascular Cardiovascular: Dyspnea, Dyspnea on Exertion. absent: As Per HPI, Acrocyanosis , Chest Pain, Chest Pain at Rest, Chest Pain with Activity, Claudication, Diaphoresis, Edema, Irregular Heart Rhythm, Pain Radiating to Arm/Neck/Jaw, Leg Edema, Leg Ulcers, Lightheadedness, Orthopnea, Palpitations, Paroxysmal Nocturnal Dyspnea, Pedal Edema, Radiating Pain, Rapid Heart Rate, Slow Heart Rate, Syncope, Other - Respiratory Respiratory: As Per HPI, Dyspnea, Dyspnea on Exertion. absent: Cough, Hemoptysis, Wheezing, Snoring, Stridor, Pain on Inspiration, Chest Congestion, Excessive Mucous Production, Change in Mucous Color, Pain with Coughing, Other - Gastrointestinal Gastrointestinal: absent: As Per HPI, Abdominal Pain, Belching, Bloating, Change in Bowel Habits, Change in Stool Character, Coffee Ground Emesis, Constipation, Cramping, Diarrhea, Dyspepsia, Dysphagia, Early Satiety, Excessive Flatus, Fecal Incontinence, Heartburn, Hematemesis, Hematochezia, Loose Stools, Melena, Nausea, Odynophagia, Temesmus, Vomiting, Other - Genitourinary Genitourinary: absent: As Per HPI, Change in Urinary Stream, Difficulty Urinating, Dysuria, Flank Pain, Hematuria, Pyuria, Nocturia, Urinary Incontinence, Urinary Frequency, Urinary Hesitance, Urinary Urgency, Voiding Freq/Small Amts, Freq UTI, Hx Renal/Bladder Calculi, Hx /Renal Surgery, Bladder Distension, Other - Reproductive: Female Reproductive:Female: absent: As Per HPI, Amenorrhea, Amenorrhea/ Control, Currently Menstual, Cycle <21 Days, Cycle >35 Days, Cycle Variable, Menses 1-7 Days, Menses >/= 8 Days, Menses Variable, Cycle > 4 Weeks Between, No Menses for 6 Months, Heavy Menses, Light Menses, Normal Menses, Spotting Between Cycles , S/P Hysterectomy, Menopausal, Post Menopausal, Premenarche, Abnormal Vaginal Bleeding, Dysmenorrhea, Dyspareunia, Genital Lesions, Genital Pruritis, Pelvic Pain, Prolapse Symptoms, Sexual Dysfunction, Vaginal Discharge, Vaginal Dryness , Vaginal Odor, Vaginal Pruritis, Other - Menstruation Menstruation: absent: As Per HPI, Amenorrhea, Amenorrhea/ Control, Currently Menstual, Cycle <21 Days, Cycle >35 Days, Cycle Variable, Menses 1-7 Days, Menses >/= 8 Days, Menses Variable, Cycle > 4 Weeks Between, No Menses for 6 Months, Heavy Menses, Light Menses, Normal Menses, Spotting Between Cycles , S/P Hysterectomy, Menopausal, Post Menopausal, Premenarche, Abnormal Vaginal Bleeding, Dysmenorrhea, Other - Musculoskeletal Musculoskeletal: absent: As Per HPI, Abnormal Gait, Arthralgias, Atrophy, Back Pain, Deformity, Joint Swelling, Limited Range of Motion, Loss of Height, Muscle Cramps, Muscle Weakness, Myalgias, Neck Pain, Numbness, Radiating Pain into Limb, Stiffness, Tingling, Other - Integumentary Integumentary: absent: As Per HPI, Acne, Alopecia, Bleeding Lesions, Change in Hair, Change in Nails, Change in Pigmentation, Changing Lesions, Dry Skin, Erythema, Furuncle, Hirsutism, Lesions, New Lesions, Non-Healing Lesions, Photosensitivity, Pruritus, Rash, Skin Pain, Skin Ulcer, Sores, Striae, Swelling , Unusual Bruising, Wounds, Jaundice, Other - Neurological Neurological: absent: As Per HPI, Abnormal Gait, Abnormal Hearing, Abnormal Movements, Abnormal Speech, Behavioral Changes, Burning Sensations, Confusion, Convulsions, Disequilibrium, Dizziness, Numbness, Focal Weakness, Frequent Falls , Headaches, Lack of Coordination, Loss of Vision, Memory Loss, Paresthesias, Radicular Pain, Restless Legs, Sensory Deficit, Syncope, Tingling, Tremor, Vertigo, Weakness, Other Visual Disturbances, Other - Psychiatric Psychiatric: absent: As Per HPI, Abnormal Sleep Pattern, Anhedonia, Anxiety, Auditory Hallucinations, Behavioral Changes, Change in Appetite, Change in Libido, Confusion, Depression, Difficulty Concentrating, Hallucinations, Homicidal Ideation, Hopelessness, Irritability, Memory Loss, Mood Swings, Panic Attacks, Paranoia, Suicidal Ideation, Visual Hallucinations, Tactile Hallucinations, Other - Endocrine Endocrine: absent: As Per HPI, Change in Body Appearance, Change in Libido, Cold Intolorance, Deepening of Voice, Excessive Sweating, Fatigue, Flushing, Heat Intolorance, Increase in Ring/Shoe/Hat Size, Palpitations, Polydipsia, Polyphagia, Polyuria, Other - Hematologic/Lymphatic Hematologic: absent: As Per HPI, Easy Bleeding, Easy Bruising, Lymphadenopathy, Other Past Patient History - Past Medical History & Family History Past Medical History?: Yes - Past Social History Smoking Status: Never Smoked Chewing Tobacco Use: No Cigar Use: No Alcohol: None Drugs: Denies Domestic Violence: Negative - CARDIAC Hx Hypertension: Yes - PULMONARY Hx Respiratory Disorders: No - NEUROLOGICAL Hx Neurological Disorder: No - HEENT Hx HEENT Problems: No - RENAL Hx Chronic Kidney Disease: No - ENDOCRINE/METABOLIC Hx Endocrine Disorders: Yes Other/Comment: THYROID GOITER - HEMATOLOGICAL/ONCOLOGICAL Hx Blood Disorders: No - INTEGUMENTARY Hx Dermatological Problems: No - MUSCULOSKELETAL/RHEUMATOLOGICAL Hx Falls: No - GASTROINTESTINAL Hx Gastrointestinal Disorders: No - GENITOURINARY/GYNECOLOGICAL Hx Genitourinary Disorders: No - PSYCHIATRIC Hx Psychophysiologic Disorder: No Hx Substance Use: No - SURGICAL HISTORY Hx Appendectomy: Yes Hx Cholecystectomy: Yes - ANESTHESIA Hx Anesthesia: Yes Hx Anesthesia Reactions: No Hx Malignant Hyperthermia: No Meds Home Medications: Home Medication List Medication Instructions Recorded Confirmed Type Apixaban [Eliquis] 5 mg PO Q12 #60 tab 11/06/16 Rx Apixaban [Eliquis] 10 mg PO Q12 #3 tab 11/06/16 Rx Apixaban [Eliquis] 10 mg PO Q12 #3 tab 11/06/16 Rx Telmisartan/Hydrochlorothiazid 1 tab PO DAILY #30 tab 11/06/16 Rx [Micardis Hct 40-12.5 mg Tablet] Allergies/Adverse Reactions: Allergies Allergy/AdvReac Type Severity Reaction Status Date / Time No Known Allergies Allergy Verified 11/04/16 12:36 - Medications Medications: Current Medications Apixaban (Eliquis) 10 mg PO Q12 [facility] PRN Reason: Protocol Stop: 11/07/16 09:01 Last Admin: 11/06/16 08:38 Dose: 10 mg Aspirin (Ecotrin) 81 mg PO DAILY [facility] Last Admin: 11/06/16 08:38 Dose: 81 mg Furosemide (Lasix) 40 mg IVP DAILY [facility] Last Admin: 11/06/16 08:38 Dose: 40 mg Ceftriaxone Sodium 1 gm/ (Sodium Chloride) 100 mls @ 100 mls/hr IVPB DAILY [facility] Last Admin: 11/06/16 09:39 Dose: 100 mls/hr Ibuprofen (Motrin Tab) 400 mg PO Q6H PRN PRN Reason: Fever >100.4 F Losartan Potassium (Cozaar) 50 mg PO DAILY [facility] Last Admin: 11/06/16 08:38 Dose: 50 mg Ondansetron HCl (Zofran Inj) 4 mg IVP Q6H PRN PRN Reason: Nausea/Vomiting Physical Exam - Constitutional Appears: Non-toxic - Head Exam Head Exam: ATRAUMATIC, NORMAL INSPECTION, NORMOCEPHALIC - Eye Exam Eye Exam: EOMI, Normal appearance, PERRL. absent: Conjunctival injection, Nystagmus, Periorbital swelling, Periorbital tenderness, Scleral icterus Pupil Exam: NORMAL ACCOMODATION, PERRL. absent: Fixed, Irregular, Miosis, Mydriatic, Unequal - ENT Exam ENT Exam: Mucous Membranes Moist, Normal Exam. absent: Mucous Membranes Dry, Normal External Ear Exam, Normal Oropharynx, TM's Normal Bilaterally - Neck Exam Neck exam: Positive for: Normal Inspection. Negative for: Full Rom, Lymphadenopathy, Meningismus, Tenderness, Thyromegaly - Respiratory Exam Respiratory Exam: Clear to Auscultation Bilateral, NORMAL BREATHING PATTERN. absent: Accessory Muscle Use, Chest Wall Tenderness, Decreased Breath Sounds, Prolonged Expiratory Phase, Rales, Rhonchi, Wheezes, Respiratory Distress, Stridor - Cardiovascular Exam Cardiovascular Exam: REGULAR RHYTHM, +S1, +S2, Systolic Murmur. absent: Bradycardia, Tachycardia, Clicks, Diastolic murmur, Gallop, Irregular Rhythm, JVD, RRR, Rubs, +S4 - GI/Abdominal Exam GI & Abdominal Exam: Normal Bowel Sounds, Soft. absent: Bruit, Diminished Bowel Sounds, Distended, Firm, Guarding, Hernia, Hyperactive Bowel Sounds, Hypoactive Bowel Sounds, Mass, Organomegaly, Pulsatile Mass, Rebound, Rigid, Tenderness - Rectal Exam Rectal Exam: Deferred - Extremities Exam Extremities exam: Positive for: pedal edema, pedal pulses present. Negative for : calf tenderness, full ROM, joint swelling, normal capillary refill, normal inspection, tenderness - Back Exam Back exam: NORMAL INSPECTION. absent: CVA tenderness (L), CVA tenderness (R), FULL ROM, muscle spasm, paraspinal tenderness, rash noted, tenderness, vertebral tenderness - Neurological Exam Neurological exam: Alert, CN II-XII Intact, Oriented x3, Reflexes Normal - Psychiatric Exam Psychiatric exam: Normal Affect, Normal Mood - Skin Skin Exam: Dry, Intact, Normal Color, Warm Results - Vital Signs Recent Vital Signs: Last Vital Signs Temp 98 F 11/06/16 08:32 Pulse 61 11/06/16 08:38 Resp 20 11/06/16 08:32 BP 121/73 11/06/16 08:38 Pulse Ox 97 11/06/16 08:32 - Labs Result Diagrams: 11/06/16 08:20 11/06/16 08:20 Labs: Laboratory Results - last 24 hr 11/05/16 11/06/16 11/06/16 05:00 08:20 08:20 WBC 6.0 RBC 4.27 Hgb 12.6 Hct 37.9 MCV 88.6 MCH 29.4 MCHC 33.2 RDW 14.6 H Plt Count 209 Sodium 138 Potassium 3.6 Chloride 102 Carbon Dioxide 25 Anion Gap 14 BUN 15 Creatinine 0.8 Est GFR ( Amer) > 60 Est GFR (Non-Af Amer) > 60 Random Glucose 96 Calcium 9.5 Total Bilirubin 1.0 AST 25 ALT 33 Alkaline Phosphatase 62 Total Protein 7.0 Albumin 3.9 Globulin 3.2 Albumin/Globulin Ratio 1.2 Free T3 pg/mL 3.72 - EKG Data EKG Interpreted by: Myself EKG shows normal: Sinus rhythm Rate: Normal Assessment & Plan (1) HTN (hypertension) Status: Acute (2) Pulmonary embolism Status: Acute (3) Rib contusion Status: Acute (4) Trauma of chest Status: Acute - Assessment and Plan (Free Text) Plan: LE DOPPLERS WERE ORDERED EARLIER - NO DVTS THUS PT DOES NOT NEED IVCF CONTINUE ANTICOAG FOR AT LEAST 6 MONTHS. NO OBVIOUS INDICATION FOR ASA NO CAD OR PVD PT NOT ON O2 VSS RECOMMEND YVON STOCKINGS FOR EDEMA OUT PT VENOUS STUDIES TO EVAL FOR INCOMPETENCE PT NOT ON TELE CURRENTLY. 90 MIN TOTAL CARE TIME.
== END 2016-11-06 14:42 | disposition home or self-care (01) | DRG 176 ==
LOC: H.ER 12:34 → H.ERHOLD 16:49 → H.ICU/CCU 21:15 → H.MEDSURG1 11-05 17:01
PROVIDERS: ADMIT Student in an Organized Health Care Education/Training Program; ATTEND Student in an Organized Health Care Education/Training Program
DX: I26.99 Other pulmonary embolism without acute cor pulmonale (principal); N39.0 Urinary tract infection, site not specified; J98.11 Atelectasis; L03.115 Cellulitis of right lower limb; L03.116 Cellulitis of left lower limb; B96.20 Unspecified Escherichia coli [E. coli] as the cause of diseases classified elsewhere; E87.6 Hypokalemia; I10 Essential (primary) hypertension; J43.2 Centrilobular emphysema; E04.9 Nontoxic goiter, unspecified; M10.9 Gout, unspecified; S20.212A Contusion of left front wall of thorax, initial encounter; S20.211A Contusion of right front wall of thorax, initial encounter; Z79.01 Long term (current) use of anticoagulants; Z79.82 Long term (current) use of aspirin; W19.XXXA Unspecified fall, initial encounter; Y92.9 Unspecified place or not applicable

== ENCOUNTER 2017-09-24 14:13 | Emergency (ER) | payer MEDICARE, OTHER ==
[2017-09-24 14:14] VITALS: BMI 31.3
--- NOTE | 2017-09-24 14:31 | ED PDOC ---
Lower Extremity Pain/Injury Time Seen by Provider: 09/24/17 14:30 Chief Complaint (Nursing): Lower Extremity Problem/Injury Chief Complaint (Provider): leg pain and swelling History Per: Patient Additional Complaint(s): 81-year-old female presents with redness, pain and swelling to left leg times one week. Patient denies fever or chills. She has history of cellulitis to same leg and is concerned about recurrence at this time. Patient able to ambulate without difficulty. No recent travel. PMD: Dr. Haji Past Medical History Reviewed: Historical Data, Nursing Documentation, Vital Signs Vital Signs: Last Vital Signs Temp 97 F L 09/24/17 14:18 Pulse 69 09/24/17 14:18 Resp 18 09/24/17 14:18 BP 132/56 L 09/24/17 14:18 Pulse Ox 97 09/24/17 14:18 - Medical History PMH: HTN - Surgical History Surgical History: Appendectomy, Cholecystectomy - Family History Family History: States: No Known Family Hx - Living Arrangements Living Arrangements: With Family - Social History Current smoker - smoking cessation education provided: No Alcohol: None Drugs: Denies - Home Medications Home Medications: Ambulatory Orders Medication Instructions Recorded Aspirin [Lo-Dose Aspirin EC] 81 mg PO DAILY 10/20/16 Febuxostat [Uloric] 40 mg PO DAILY 11/04/16 Furosemide [Lasix] 20 mg PO DAILY 11/04/16 Apixaban [Eliquis] 5 mg PO Q12 #60 tab 11/06/16 Apixaban [Eliquis] 10 mg PO Q12 #3 tab 11/06/16 Apixaban [Eliquis] 10 mg PO Q12 #3 tab 11/06/16 Telmisartan/Hydrochlorothiazid 1 tab PO DAILY #30 tab 11/06/16 [Micardis Hct 40-12.5 mg Tablet] Amoxicillin/Clavulanate [Augmentin 1 tab PO BID #14 tab 09/24/17 875 MG-125 MG] Clindamycin [Cleocin] 300 mg PO TID #21 cap 09/24/17 - Allergies Allergies/Adverse Reactions: Allergies Allergy/AdvReac Type Severity Reaction Status Date / Time No Known Allergies Allergy Verified 11/04/16 12:36 Wells Criteria for PE - Wells Criteria for Pulmonary Embolism Clinical Signs and Symptoms of DVT: Yes P.E is #1 Diagnosis, or Equally Likely: No Heart Rate >100: No Immobilization at least 3 days;Surgery previous 4 weeks: No Previous, objectively diagnosed PE or DVT: No Hemoptysis: No Malignancy w/treatment within 6 months, or palliative: No Total Score: 3 Review of Systems ROS Statement: Except As Marked, All Systems Reviewed And Found Negative Constitutional: Negative for: Fever, Chills Cardiovascular: Negative for: Chest Pain Respiratory: Negative for: Cough Gastrointestinal: Negative for: Nausea, Vomiting Musculoskeletal: Positive for: Leg Pain (swelling and redness to left leg) Neurological: Negative for: Headache, Dizziness Physical Exam - Reviewed Nursing Documentation Reviewed: Yes Vital Signs Reviewed: Yes - Physical Exam Appears: Positive for: Well, Non-toxic, No Acute Distress Skin: Positive for: Normal Color. Negative for: Rash Eye Exam: Positive for: Normal appearance Cardiovascular/Chest: Positive for: Regular Rate, Rhythm Respiratory: Positive for: Normal Breath Sounds. Negative for: Respiratory Distress Gastrointestinal/Abdominal: Positive for: Soft. Negative for: Tenderness, Distended, Guarding, Rebound Extremity: Positive for: Other (Swelling, erythema, tenderness and mild warmth noted to left lower extremity, mild tenderness to calf, normal distal sensation , normal cap refill) Neurologic/Psych: Positive for: Alert, Oriented - Laboratory Results Result Diagrams: 09/24/17 15:19 09/24/17 15:19 - ECG O2 Sat by Pulse Oximetry: 97 Pulse Ox Interpretation: Normal - Other Rad Doppler left leg X-Ray: Read By Radiologist X-Ray Interpretation: no DVT Medical Decision Making Medical Decision Making: Impression: Cellulitis left leg Plan: CBC CMP Blood cultures Doppler left leg IVF IV vanco and zosyn Patient with cellulitis to left leg, no white count, no fever, no tachycardia noted, patient does not meet sepsis criteria. Patient is stable for outpatient treatment. Prescriptions given for Augmentin and clindamycin. Patient was advised to observe symptoms closely and return immediately if symptoms worsen, otherwise to follow up Tuesday with primary care doctor. Disposition - Clinical Impression Clinical Impression: Cellulitis of left leg - Patient ED Disposition Is Patient to be Admitted: No Counseled Patient/Family Regarding: Studies Performed, Diagnosis, Need For Followup, Rx Given - Disposition Referrals: Jose Haji MD [Family Provider] - Disposition: Routine/Home Disposition Time: 17:47 Condition: STABLE Additional Instructions: Elevate leg as often as possible, take Tylenol for pain. Start oral antibiotics tomorrow and take as directed. Return immediately if symptoms worsen, otherwise follow-up Tuesday with primary doctor. Prescriptions: Amoxicillin/Clavulanate [Augmentin 875 MG-125 MG] 1 tab PO BID #14 tab Clindamycin [Cleocin] 300 mg PO TID #21 cap Instructions: Cellulitis (Skin Infection), Adult (DC) Forms: [employer] (Andorran) Results - Lab Results Lab Results: 09/24/17 09/24/17 15:19 15:19 WBC 7.2 RBC 4.34 Hgb 13.1 Hct 38.1 MCV 87.7 MCH 30.1 MCHC 34.4 RDW 14.5 Plt Count 226 MPV 8.7 Neut % (Auto) 67.9 Lymph % (Auto) 20.9 [place] % (Auto) 7.1 Eos % (Auto) 3.0 Baso % (Auto) 1.1 Neut # (Auto) 4.9 Lymph # (Auto) 1.5 [place] # (Auto) 0.5 Eos # (Auto) 0.2 Baso # (Auto) 0.1 Sodium 139 Potassium 3.8 Chloride 103 Carbon Dioxide 24 Anion Gap 16 BUN 18 H Creatinine 0.6 L Est GFR ( Amer) > 60 Est GFR (Non-Af Amer) > 60 Random Glucose 104 Calcium 9.8 Total Bilirubin 1.2 AST 33 ALT 30 Alkaline Phosphatase 65 Total Protein 7.2 Albumin 4.1 Globulin 3.1 Albumin/Globulin Ratio 1.3
[2017-09-24] MEDS ORDERED: Sodium Chloride 0.9% 1,000 ML IV STA (15:01)
[2017-09-24] MEDS ORDERED: Piperacillin/Tazobact 3.375 gm Inj IVPB STA (15:01)
[2017-09-24] MEDS ORDERED: Piperacillin/Tazobact 3.375 gm Inj IVPB ONE (15:40)
[2017-09-24 15:45] LABS: BASO # 0.1 K/uL (0.0-0.2); BASO % 1.1 % (0.0-2.0); EOS # 0.2 K/uL (0.0-0.7); HEMOGLOBIN 13.1 g/dL (12.0-16.0); LYMPH # 1.5 K/uL (1.0-4.3); LYMPH % 20.9 % (20.0-40.0); MEAN CELL VOLUME 87.7 fl (81.0-99.0); MEAN CORPUSCULAR HEMOGLOBIN 30.1 pg (27.0-31.0); MEAN CORPUSCULAR HGB CONC 34.4 g/dL (33.0-37.0); MEAN PLATELET VOLUME 8.7 fl (7.2-11.7); MONO # 0.5 K/uL (0.0-0.8); MONO % 7.1 % (0.0-10.0); NEUT # 4.9 K/uL (1.8-7.0); NEUT % 67.9 % (50.0-75.0); NRBC % 0.1 % (0.0-0.0); RBC 4.34 Mil/uL (3.80-5.20); RED CELL DISTRIBUTION WIDTH 14.5 % (11.5-14.5); WHITE BLOOD COUNT 7.2 K/uL (4.8-10.8)
[2017-09-24 16:08] LABS: ALB/GLOB RATIO 1.3 (1.0-2.1); ALBUMIN 4.1 g/dL (3.5-5.0); ALT/SGPT 30 U/L (9-52); AST/SGOT 33 U/L (14-36); BLOOD UREA NITROGEN 18 mg/dl (7-17); CALCIUM 9.8 mg/dL (8.4-10.2); GFR AFRICAN-AMERICAN > 60; GFR NON-AFRICAN AMERICAN > 60
--- NOTE | 2017-09-24 16:19 | US ---
PROCEDURE: Left lower extremity venous duplex Doppler. HISTORY: swelling and redness left leg COMPARISON: Lower extremity ultrasound dated 11/04/2016. TECHNIQUE: Common femoral, superficial femoral, popliteal and posterior tibial veins were evaluated. Flow was assessed with color Doppler, compressibility, assessment of phasic flow and augmentation response. FINDINGS: COMMON FEMORAL VEIN: Unremarkable. SUPERFICIAL FEMORAL VEIN: Unremarkable. POPLITEAL VEIN: Unremarkable. POSTERIOR TIBIAL VEIN: Unremarkable. OTHER FINDINGS: None. IMPRESSION: No evidence of deep venous thrombosis in the left ower extremity.
[2017-09-24] MEDS ORDERED: Vancomycin 1 g Inj ONE (16:53)
[2017-09-24 18:34] VITALS: BP 135/80; PULSE 75; RESP 16; TEMP 98.1; O2SAT 100
== END 2017-09-24 18:34 | disposition home or self-care (01) ==
LOC: H.ER 14:13
DX: L03.116 Cellulitis of left lower limb (principal); I10 Essential (primary) hypertension; Z79.01 Long term (current) use of anticoagulants; Z79.82 Long term (current) use of aspirin
CPT/HCPCS: 80053; 85025; 87040; 93971; 96365; 99283; J2543; J7030